=== PATIENT | female | born 1960 | race Two or more races ===

== ENCOUNTER 2017-03-30 06:45 | Emergency (ER) | payer MEDICAID ==
[~2017-03-30] VITALS: Ht 149.9 cm; Wt 81.5 kg
[2017-03-30 06:48] VITALS: Ht 149.9 cm; Wt 81.5 kg
[2017-03-30] MEDS ORDERED: ASPIRIN 81 MG TAB PO STA (07:05)
[2017-03-30] MEDS ORDERED: morphine 2 MG INJ IV ONE (07:30)
[2017-03-30 07:32] LABS: BASOPHIL # 0.1 10^3/ul (0.0-0.1); BASOPHILS % 0.7 % (0.0-2.0); EOSINOPHILS # 0.1 10^3/ul (0.0-0.5); EOSINOPHILS % 1.4 % (0.0-7.0); HEMATOCRIT 37.7 % (37.0-47.0); HEMOGLOBIN 12.4 g/dl (12.0-16.0); LYMPHOCYTES # 3.8 10^3/ul (0.8-2.9); LYMPHOCYTES % 49.8 % (15.0-51.0); MEAN CORPUSCULAR HEMOGLOBIN 29.7 pg (29.0-33.0); MEAN CORPUSCULAR HGB CONC 32.9 g/dl (32.0-37.0); MEAN CORPUSCULAR VOLUME 90.2 fl (82.0-101.0); MEAN PLATELET VOLUME 10.5 fl (7.4-10.4); MONOCYTE # 0.5 10^3/ul (0.3-0.9); NEUTROPHIL # 3.1 10^3/ul (1.6-7.5); NEUTROPHILS % 40.7 % (39.0-77.0); PLATELET COUNT 311 10^3/UL (140-415); RED BLOOD COUNT 4.18 10^6/ul (4.20-5.40); RED CELL DISTRIBUTION WIDTH 12.8 % (11.5-14.5); WHITE BLOOD COUNT 7.6 10^3/ul (4.8-10.8)
[2017-03-30] MEDS: ASPIRIN 81 MG TAB PO ONE ×2 (07:34→07:38)
--- NOTE | 2017-03-30 07:34 | RADRPT ---
PROCEDURE: XR Chest. CLINICAL INDICATION: chest pain TECHNIQUE: Single frontal view of the chest was obtained COMPARISON: None FINDINGS: The heart and mediastinum are within normal limits. The lungs are clear. There is no pleural effusion or pneumothorax. RPTAT: AA IMPRESSION: No acute disease. .Dakotah Quinones MD, Date Time Electronically viewed and signed by .Dakotah Quinones MD, on 03/30/2017 07:34 .S/
[2017-03-30 08:00] LABS: ANION GAP 13 (8-16); BLOOD UREA NITROGEN 15 mg/dl (7-20); CALCIUM 9.5 mg/dl (8.4-10.2); CARBON DIOXIDE 27 mmol/L (21-31); CHLORIDE 105 mmol/L (97-110); CREATINE KINASE 98 IU/L (23-200); CREATININE 0.73 mg/dl (0.44-1.00); GLUCOSE 131 mg/dl (70-220); POTASSIUM 3.6 mmol/L (3.5-5.1); SODIUM 141 mmol/L (135-144)
[2017-03-30 08:11] LABS: CK-MB 1.31 ng/ml (0.0-2.4)
[2017-03-30 08:12] LABS: TROPONIN-I < 0.012 ng/ml (0.00-0.12)
--- NOTE | 2017-03-30 08:52 | ERD ---
ER Documentation Chief Complaint Date/Time DATE: 03/30/17 TIME: 08:48 Chief Complaint CP x 2 hours HPI 56-year-old female with a history of diabetes and hypertension presenting to the ER complaining of left-sided chest pain. She states it is pressure-like. Started at 5:30 AM. Nonradiating. Constant, intermittently more severe. Currently a 5 out of 10. Mild associated shortness of breath but no diaphoresis , dizziness, nausea, or vomiting. No leg swelling. No recent surgeries, immobilization, or history of blood clots. ROS All systems reviewed and are negative except as per history of present illness. Medications Home Meds Reported Medications Amlodipine Besylate* (Amlodipine Besylate*) 10 Mg Tablet, 10 MG PO DAILY, #30 TAB 03/30/17 Metformin* (Glucophage*) 500 Mg Tab, 500 MG PO BID, #60 TAB 03/30/17 Allergies Allergies: Coded Allergies: No Known Allergy (Unverified , 03/30/17) PMhx/Soc History of Surgery: Yes (2 CM BLADDER REMOVED WITH C SECTION) Anesthesia Reaction: No Hx Neurological Disorder: No Hx Respiratory Disorders: No Hx Cardiac Disorders: Yes (Hypertension) Hx Psychiatric Problems: No Hx Miscellaneous Medical Probl: Yes (Diabetes) Hx Alcohol Use: No Hx Substance Use: No Hx Tobacco Use: No Smoking Status: Never smoker FmHx Family History: No coronary disease, No diabetes Physical Exam Vitals Vital Signs Date Time Temp Pulse Resp B/P Pulse Ox O2 Delivery O2 Flow Rate FiO2 03/30/17 10:30 69 14 104/66 97 Room Air 03/30/17 09:00 64 16 107/75 98 Room Air 03/30/17 07:30 90 16 116/81 98 Room Air 03/30/17 07:27 Nasal Cannula 2 03/30/17 06:48 98.3 102 20 181/97 99 Physical Exam Const: Well appearing, no apparent distress, nondiaphoretic, speaking in full sentences Head: Atraumatic Eyes: Normal Conjunctiva ENT: Normal External Ears, Nose and Mouth. Neck: Full range of motion..~ No meningismus. Resp: Clear to auscultation bilaterally Cardio: Regular rate and rhythm, no murmurs. 2+ distal pulses Abd: Soft, non tender, non distended. Normal bowel sounds Skin: No petechiae or rashes Back: No midline or flank tenderness Ext: No cyanosis, or edema Neur: Awake and alert Psych: Normal Mood and Affect Result Diagram: 03/30/1771803/30/17718 Results 24 hrs Laboratory Tests Test 03/30/17 07:19 03/30/17 11:14 White Blood Count 7.610^3/ul Red Blood Count 4.1810^6/ul Hemoglobin 12.4g/dl Hematocrit 37.7% Mean Corpuscular Volume 90.2fl Mean Corpuscular Hemoglobin 29.7pg Mean Corpuscular Hemoglobin Concent 32.9g/dl Red Cell Distribution Width 12.8% Platelet Count 18519^3/UL Mean Platelet Volume 10.5fl Neutrophils % 40.7% Lymphocytes % 49.8% Monocytes % 7.0% Eosinophils % 1.4% Basophils % 0.7% Nucleated Red Blood Cells % 0.0/100WBC Neutrophils # 3.110^3/ul Lymphocytes # 3.810^3/ul Monocytes # 0.510^3/ul Eosinophils # 0.110^3/ul Basophils # 0.110^3/ul Nucleated Red Blood Cells # 0.010^3/ul D-Dimer 410.00ng/ml D-Dimer Comment Sodium Level 141mmol/L Potassium Level 3.6mmol/L Chloride Level 105mmol/L Carbon Dioxide Level 27mmol/L Anion Gap 13 Blood Urea Nitrogen 15mg/dl Creatinine 0.73mg/dl Glucose Level 131mg/dl Calcium Level 9.5mg/dl Creatine Kinase 98IU/L Creatine Kinase Index 1.3 Creatinine Kinase MB (Mass) 1.31ng/ml Troponin I < 0.012ng/ml < 0.012ng/ml Current Medications Medications (Trade) Dose Ordered Sig/Petros Route PRN Reason Start Time Stop Time Status Last Admin Dose Admin Aspirin (Aspirin) 162 mg ONCE STAT PO 03/30/17 07:05 03/30/17 07:07 DC 03/30/17 07:30 Aspirin (Aspirin) 162 mg ONCE ONCE PO 03/30/17 07:30 03/30/17 07:31 DC 03/30/17 07:38 Morphine Sulfate (morphine) 2 mg ONCE ONCE IV 03/30/17 07:30 03/30/17 07:31 DC 03/30/17 07:30 Procedures/MDM EMERGENT LABS AND DIAGNOSTIC STUDIES: Lab Results above were reviewed and interpreted by me. CBC and BMP are unremarkable First set of cardiac enzymes normal D-dimer within normal limits EKG #1: Rate/Rhythm: Normal Sinus Rhythm QRS, ST, T-waves: No changes consistent w/ acute ischemia Impression: No evidence of ischemia or arrhythmia EKG #2: Rate/Rhythm: Normal Sinus Rhythm QRS, ST, T-waves: No changes consistent w/ acute ischemia Impression: No evidence of ischemia or arrhythmia Radiology Results as interpreted by Radiology below were reviewed by Yared Galeana MD: Chest x-ray shows no significant abnormalities Initial Nursing notes reviewed. Previous Medical Records requested via the Electronic Health Record. EMERGENCY DEPARTMENT COURSE / MEDICAL DECISION MAKING: The patient presents with chest pain. Vitals are stable. I considered pulmonary embolism, aortic dissection, pneumothorax among other diagnoses. Evaluation for acute coronary syndrome was performed. The HEART score was utilized for risk stratification and found to be 2. Repeat troponin @ 3 hours unchanged. PERC + but low risk per Wells Criteria. D-dimer negative, so PE very unlikely. I also doubt aortic dissection. Based on this evaluation the patient's risk of major adverse cardiac events is <1%. Shared decision making occurred with patient and the decision has been made to discharge the patient for outpatient evaluation and functional study within 72 hours. Patient instructed to arrange follow up with PCP in the next 2 days and return to the ED for any new or worsening symptoms. Patient's blood pressure was elevated (>120/80) but appears stable without evidence of hypertensive emergency or urgency. The patient was counseled about the risks of hypertension and urged to pursue outpatient monitoring and therapy within a week with their primary care physician. Departure Diagnosis: Primary Impression: Chest pain Chest pain type: unspecified Qualified Code: R07.9 - Chest pain, unspecified type Condition: Stable EKTASNEEM RESTREPO MD Mar 30, 2017 08:52
[2017-03-30] MEDS ORDERED: AMLO-147 PO (09:40)
[2017-03-30] MEDS ORDERED: METF500T4 PO (09:40)
[2017-03-30 12:41] VITALS: BP 128/72; PULSE 62; RESP 18
== END 2017-03-30 12:43 | disposition home or self-care (01) ==
LOC: E/R 06:45
DX: R07.89 Other chest pain (principal); I10 Essential (primary) hypertension; E11.9 Type 2 diabetes mellitus without complications; Z79.84 Long term (current) use of oral hypoglycemic drugs
CPT/HCPCS: 36415; 71010; 80048; 82550; 82553; 84484; 85025; 85378; 93005; 96374; J2270; Z7502; Z7610

== ENCOUNTER 2017-06-25 07:14 | Emergency (ER) | END 2017-06-25 13:51 | disposition home or self-care (01) ==

== ENCOUNTER 2018-10-16 12:11 | Emergency (ER) | payer MEDICAID ==
[~2018-10-16] VITALS: Ht 162.6 cm; Wt 84.0 kg
[~2018-10-16 12:11] MED LIST: AMLO-147 PO; DICY10CA40 PO; HYDR-4011 PO; METF-849 PO; PRAV10TA43 PO
[2018-10-16 12:44] VITALS: BP 154/70; PULSE 92; RESP 18; Ht 162.6 cm; Wt 84.0 kg
[2018-10-16] MEDS ORDERED: ACET-141 PO (13:22)
[2018-10-16] MEDS ORDERED: IBUP-1542 PO (13:22)
[2018-10-16] MEDS ORDERED: METH750T93 PO (13:22)
--- NOTE | 2018-10-16 13:30 | ERD ---
ER Documentation Chief Complaint Chief Complaint trip & fall x4 days ago, lower back & hip pain. nina BLANCASSONIA 58-year-old female past medical history of diabetes, hypertension, hyperlipid emia. Presents for low back pain and left hip pain status post fall 4 days ago. She states that she was walking tripped and fell onto her left side. She states that she has 9 out of 10 pain. The pain worse with movement, improved with rest. Patient states that she is able to ambulate. She has been taking Tylenol at home with mild relief. No other treatments tried home. No other modifying factors noted. ROS All systems reviewed and are negative except as per history of present illness. Medications Home Meds Active Scripts Ibuprofen* (Motrin*) 600 Mg Tab, 600 MG PO Q8H PRN for PAIN, #30 TAB Prov:BALDEMAR MANZANARES DO 10/16/18 Acetaminophen* (Acetaminophen*) 500 MG Extra Strength Tablet, 500 MG PO Q4H PRN for PAIN AND OR ELEVATED TEMP, #30 TAB Prov:BALDEMAR MANZANARES DO 10/16/18 Methocarbamol* (Robaxin*) 750 Mg Tablet, 750 MG PO TID PRN for muscle pain, #30 TAB Prov:BALDEMAR MANZANARES DO 10/16/18 Dicyclomine HCl (Dicyclomine HCl) 10 Mg Capsule, 20 MG PO QID, #20 CAP Prov:LOLA BLAKELY DO 06/25/17 Hydrocodone/Acetaminophen (Creola 5-325 Tablet) 1 Each Tablet, 1 TAB PO Q6H PRN for PAIN, #15 TAB Prov:LOLA BLAKELY DO 06/25/17 Reported Medications Pravastatin Sodium* (Pravastatin Sodium*) 10 Mg Tablet, 5 MG PO HS, TAB 06/25/17 Amlodipine Besylate* (Amlodipine Besylate*) 10 Mg Tablet, 10 MG PO DAILY, #30 TAB 03/30/17 Metformin* (Glucophage*) 500 Mg Tab, 500 MG PO BID, #60 TAB 03/30/17 Allergies Allergies: Coded Allergies: No Known Allergy (Unverified , 06/25/17) PMhx/Soc History of Surgery: Yes (2 CM BLADDER REMOVED WITH C SECTION) Anesthesia Reaction: No Hx Neurological Disorder: No Hx Respiratory Disorders: No Hx Cardiac Disorders: Yes (Hypertension) Hx Psychiatric Problems: No Hx Miscellaneous Medical Probl: Yes (Diabetes) Hx Alcohol Use: No Hx Substance Use: No Hx Tobacco Use: No Physical Exam Vitals Vital Signs Date Temp Pulse Resp B/P (MAP) Pulse Ox O2 O2 Flow FiO2 Time Delivery Rate 10/16/18 98.3 92 18 154/70 96 12:44 (98) Physical Exam Const: No acute distress Neck: Full range of motion. No meningismus. no midline tenderness Resp: Clear to auscultation bilaterally Cardio: Regular rate and rhythm, no murmurs, bilateral radial and dorsalis pedis pulses intact and equal Abd: Soft, non tender, non distended. Normal bowel sounds, no abdominal bruit noted Skin: No petechiae or rashes Back: no point tenderness, there is right-sided paravertebral muscle tenderness to palpation over the lumbar spine Ext: No cyanosis, or edema, 5/5 muscle strength bilateral upper and lower e xtremities, there is some tenderness over the left hip area, patient's gait is balanced with no limping noted. Neur: Awake and alert, bilateral upper and lower extremity sensation intact Psych: Normal Mood and Affect Procedures/MDM Medical Decision Making: Differential diagnosis includes but not limited to fracture, dislocation, muscle strain, ligamentous sprain. Patient appeared well on physical exam. There was tenderness over the left lower back area and left hip area Patient was neurovascularly intact Patient was ambulate he normally without any obvious limp. There was no obvious deformities. Patient was neurovascular intact. There is low suspicion for any acute fracture at this point. Prescription(s): Patient given prescription for supportive medication(s). Patient advised to follow up with PCP in 1-2 days. Patient advised to return to ED for new or worsening symptoms. Patient stable on discharge from the ED. Disclaimer: Inadvertent spelling and grammatical errors are likely due to EHR/dictation software use and do not reflect on the overall quality of patient care. Also, please note that the electronic time recorded on this note does not necessarily reflect the actual time of the patient encounter. Departure Diagnosis: Primary Impression: Back pain Back pain location: low back pain Chronicity: acute Back pain laterality: left Sciatica presence: without sciatica Qualified Codes: M54.5 - Low back pain Additional Impression: Left hip pain Condition: Fair Patient Instructions: Back Pain (Acute Or Chronic) Referrals: [facility] (PCP) Additional Instructions: Visite a zamora geremias romero para un EXAMEN.Regrese a estas instalaciones si no se mejora olivia esperbamos o olivia le esdrass. BALDEMAR MANZANARES DO Oct 16, 2018 13:30
== END 2018-10-16 13:30 | disposition home or self-care (01) ==
LOC: FTE 12:11 → E/R 13:30
DX: M54.5 Low back pain (principal); M25.552 Pain in left hip; E11.9 Type 2 diabetes mellitus without complications; I10 Essential (primary) hypertension; Z79.84 Long term (current) use of oral hypoglycemic drugs
CPT/HCPCS: 99283